=== PATIENT | male | born 2000 | race Hispanic/Latino ===

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

== ENCOUNTER 2018-01-22 20:19 | Emergency (ER) | payer OTHER ==
[2018-01-22 20:46] VITALS: RESP 16
--- NOTE | 2018-01-22 21:24 | ED PDOC ---
HPI: Male Pain Time Seen by Provider: 01/22/18 21:15 Chief Complaint (Nursing): Groin Pain Chief Complaint (Provider): right testicular pain History Per: Patient History/Exam Limitations: no limitations Onset/Duration Of Symptoms: Hrs (12) Current Symptoms Are (Timing): Still Present Quality Of Discomfort: "Pain" Additional Complaint(s): 17 y/o male presents for evaluation of right testicular pain with associated swelling x 12 hours. Denies fever, nausea/vomiting, abdominal pain, dysuria, hematuria, penile pain/discharge. Past Medical History Reviewed: Historical Data, Nursing Documentation, Vital Signs Vital Signs: Last Vital Signs Temp 97.7 F 01/22/18 20:43 Pulse 76 01/22/18 20:43 Resp 16 01/22/18 20:43 BP 124/64 01/22/18 20:43 Pulse Ox 99 01/22/18 20:43 - Medical History PMH: Asthma - Surgical History Surgical History: No Surg Hx - Family History Family History: States: Unknown Family Hx - Home Medications Home Medications: Ambulatory Orders Medication Instructions Recorded Azithromycin [Zithromax] 250 mg PO DAILY #6 tab 11/21/16 Cyclobenzaprine [Cyclobenzaprine 10 mg PO TID PRN #20 tab 11/21/16 HCl] Naproxen [Naprosyn] 500 mg PO BID #20 tab 11/21/16 Acetaminophen with Codeine 1 tab PO QID #20 tablet 06/18/17 [Tylenol with Codeine #3 Tablet] Ibuprofen [Motrin Tab] 1 tab PO Q6 PRN #20 tab 01/22/18 - Allergies Allergies/Adverse Reactions: Allergies Allergy/AdvReac Type Severity Reaction Status Date / Time latex Allergy SWELLING Verified 01/22/18 20:43 peanut Allergy ANAPHYLAXIS Verified 01/22/18 20:43 Review of Systems ROS Statement: Except As Marked, All Systems Reviewed And Found Negative Genitourinary Male: Positive for: Scrotal Pain (right) Physical Exam - Reviewed Nursing Documentation Reviewed: Yes Vital Signs Reviewed: Yes - Physical Exam Appears: Positive for: Well, Non-toxic, No Acute Distress Head Exam: Positive for: ATRAUMATIC, NORMAL INSPECTION, NORMOCEPHALIC Skin: Positive for: Normal Color Eye Exam: Positive for: Normal appearance ENT: Positive for: Normal ENT Inspection Cardiovascular/Chest: Positive for: Regular Rate, Rhythm Respiratory: Positive for: Normal Breath Sounds Gastrointestinal/Abdominal: Positive for: Normal Exam Male Genital Exam: Positive for: testicular tenderness (R) (no erythema, swelling noted), other (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 Negative for: inguinal tenderness, urethral discharge Back: Positive for: Normal Inspection Extremity: Positive for: Normal ROM Neurologic/Psych: Positive for: Alert, Oriented (x3) - Laboratory Results Result Diagrams: 01/22/18 21:30 01/22/18 21:30 - ECG O2 Sat by Pulse Oximetry: 99 - Progress ED Course And Treament: -cbc -cmp -urinalysis -testes u/s -IV toradol Date of service: 09/17/2017 History Right testicular pain. Technique Realtime sonography through the scrotum with color and Doppler flow. Comparison None Available. Findings Right Testicle Measures 4.6 x 2.4 x 3.2 cm. Normal echotexture and flow. Right Epididymis Epididymal head measures 1.1 x 1.1 x 0.8 cm. Grossly unremarkable appearance with normal flow. Left Testicle Measures 4.2 x 2.3 x 2.8 cm. Normal echotexture and flow. Left Epididymis Epididymal head measures 0.6 x 0.4 x 0.9 cm. Grossly unremarkable appearance with normal flow. Hydrocele None. Varicocele None. Other Findings None. Impression Unremarkable study. On re-eval, patient resting comfortably Patient educated on findings, discharged with rx Ibuprofen Advised ice application Follow up urology Return precautions given Disposition - Clinical Impression Clinical Impression: Right testicular pain - Patient ED Disposition Is Patient to be Admitted: No Counseled Patient/Family Regarding: Studies Performed, Diagnosis, Need For Followup, Rx Given - Disposition Referrals: Alison Solorio MD [Medical Doctor] - Disposition: Routine/Home Disposition Time: 23:28 Condition: IMPROVED Prescriptions: Ibuprofen [Motrin Tab] 1 tab PO Q6 PRN #20 tab PRN Reason: Pain, Moderate (4-7) Forms: [employer] [facility] (Nepali)
[2018-01-22 21:44] LABS: BASO % 0.6 % (0.0-2.0); EOS # 0.1 K/uL (0.0-0.7); EOS % 1.1 % (0.0-4.0); HEMOGLOBIN 16.8 g/dL (12.0-18.0); LYMPH # 2.1 K/uL (1.0-4.3); LYMPH % 29.8 % (20.0-40.0); MEAN CELL VOLUME 86.7 fl (80.0-94.0); MEAN CORPUSCULAR HEMOGLOBIN 30.4 pg (27.0-31.0); MEAN CORPUSCULAR HGB CONC 35.1 g/dL (33.0-37.0); MEAN PLATELET VOLUME 7.9 fl (7.2-11.7); MONO # 0.8 K/uL (0.0-0.8); MONO % 10.8 % (0.0-10.0); NEUT # 4.1 K/uL (1.8-7.0); NEUT % 57.7 % (50.0-75.0); NRBC % 0.2 % (0.0-0.0); RBC 5.51 Mil/uL (4.40-5.90); RED CELL DISTRIBUTION WIDTH 13.8 % (11.5-14.5)
[2018-01-22 21:48] LABS: URINE BILIRUBIN NEGATIVE (NEGATIVE); URINE BLOOD NEGATIVE (NEGATIVE); URINE CLARITY SLIGHTY-CLOUDY (Clear); URINE COLOR YELLOW (YELLOW); URINE GLUCOSE (UA) NEG (Normal); URINE LEUKOCYTE ESTERASE NEG Leu/uL (Negative); URINE PROTEIN NEGATIVE (NEGATIVE); URINE UROBILINOGEN 0.2-1.0 mg/dL (0.2-1.0)
[2018-01-22 22:00] LABS: ALB/GLOB RATIO 1.5 (1.0-2.1); ALBUMIN 4.7 g/dL (3.5-5.0); ALT/SGPT 34 U/L (21-72); AST/SGOT 28 U/L (17-59); BLOOD UREA NITROGEN 24 mg/dl (9-20); CALCIUM 9.6 mg/dL (8.4-10.2); GFR NON-AFRICAN AMERICAN > 60
[2018-01-23] VITALS: BP 121/69; PULSE 69; TEMP 98; O2SAT 96
--- NOTE | 2018-01-23 11:02 | US ---
Date of service: 01/22/2018 HISTORY: right testicular pain TECHNIQUE: Realtime sonography through the scrotum with color and doppler flow. COMPARISON: None Available. FINDINGS: RIGHT TESTICLE: Measures 2.4 x 4.6 cm. Normal echotexture and flow. RIGHT EPIDIDYMIS: Epididymal head measures 1.1 x 1.1 cm. Grossly unremarkable appearance with normal flow. LEFT TESTICLE: Measures 2.3 x 4.2 cm. Normal echotexture and flow. LEFT EPIDIDYMIS: Epididymal head measures 0.6 x 0.9 cm. Grossly unremarkable appearance with normal flow. HYDROCELE: None. VARICOCELE: None. OTHER FINDINGS: None. IMPRESSION: No significant or acute findings to account for/ related to the clinical presentation. Concordant findings (preliminary report) provided by [facility].
== END 2018-01-23 | disposition home or self-care (01) ==
LOC: H.ER 20:19
DX: N50.819 Testicular pain, unspecified (principal)
CPT/HCPCS: 80053; 81003; 85025; 87086; 93975; 99283; J1885